=== PATIENT | female | born 1945 | race Caucasian/White ===

== ENCOUNTER → 2022-10-15 07:49 | Outpatient (CLI) | payer OTHER, SELFPAY ==
[2022-10-15 08:57] LABS: COVID19 -Nasal RAPID Negative (Negative)
== END ==
PROVIDERS: PCP Internal Medicine Geriatric Medicine; Referring Provider Internal Medicine; Visit Provider Internal Medicine
DX: Z20.822 Contact with and (suspected) exposure to COVID-19 (principal)
CPT/HCPCS: 87635; C9803

== ENCOUNTER → 2022-10-15 07:53 | Outpatient (CLI) | payer OTHER, SELFPAY ==
--- NOTE | 2022-10-20 09:19 | PM.PFT.1 ---
Pulmonary Function Test Referral & Results Date Patient Seen: 10/15/22 Requesting provider: Radha Enamorado Results: The spirometry demonstrates an FVC of 1.05 L which is 45% of predicted. The FEV1 was measured at 0.82 L which is 47% of predicted. The FEV1/FVC ratio was 78 which is 103% of predicted. Following the administration of bronchodilator there was a 15% improvement in FEF 25-75%. Lung volumes show an SVC of 1.32 L which is 56% of predicted. The diffusing capacity was measured at 13.77 which is 72% of predicted. No hemoglobin value was provided, so no correction for potential anemia could be made, if appropriate. The maximum voluntary ventilation was severely reduced Interpretation: This study demonstrates probably severe obstructive lung disease based on reduction FEV1 which is less than 1 L. However FEV1/FVC ratio is preserved. There is evidence of minimal benefit in small airway flow post bronchodilator as above There is a moderately severe reduction in lung volumes suggesting moderately severe restrictive lung disease which may well explain some of the abnormality in the FEV1 above Diffusing capacity is mildly reduced suggesting disease at the capillary alveolar level Clinical correlation suggested
== END ==
PROVIDERS: PCP Internal Medicine Geriatric Medicine; Referring Provider Nurse Practitioner Family; Visit Provider Nurse Practitioner Family
DX: J98.8 Other specified respiratory disorders (principal); Z79.899 Other long term (current) drug therapy; Z87.891 Personal history of nicotine dependence; Z20.822 Contact with and (suspected) exposure to COVID-19
CPT/HCPCS: 87635; 94060; 94726; 94729; C9803